=== PATIENT | female | born 1950 | race Caucasian/White ===

== ENCOUNTER → 2017-05-12 | Outpatient (CLI) | payer BC ==
--- NOTE | 2017-05-12 17:06 | XR ---
EXAMINATION TYPE: XR chest 2V DATE OF EXAM: 05/12/2017 COMPARISON: NONE INDICATION: Cough TECHNIQUE: Frontal and lateral views of the chest are obtained. FINDINGS: The heart size is normal. The pulmonary vasculature is normal. The lungs are clear. IMPRESSION: 1. No acute pulmonary process.
== END | disposition home or self-care (01) ==
LOC: RADXRMAIN 16:37
PROVIDERS: ATTEND Family Medicine
DX: J45.909 Unspecified asthma, uncomplicated (principal); Z00.00 Encounter for general adult medical examination without abnormal findings
CPT/HCPCS: 71020

== ENCOUNTER → 2017-06-10 | Outpatient (CLI) | payer MEDICARE, BC ==
--- NOTE | 2017-06-11 11:35 | BD ---
EXAMINATION TYPE: MG DEXA axial skeleton. DATE OF EXAM: 06/10/2017 COMPARISON: NONE CLINICAL HISTORY: Postmenopausal female. Screening. Height: 5 FT 2 1/2 IN Weight: 193 FRAX RISK QUESTIONS: Alcohol (3 or more units per day): NO Family History (Parent hip fracture): NO Glucocorticoids (More than 3mos): NO (Ex: prednisone, prednisolone, methylprednisolone, dexamethasone, and hydrocortisone). History of Fracture in Adulthood: NO Secondary Osteoporosis: 1. Type 1 Diabetes: NO 2. Hyperthyroidism: NO 3. Menopause before 45: NO 4. Malnutrition: NO 5. Chronic liver disease: HEP C 1985 FROM BLOOD TRANSFUSION Rheumatoid Arthritis: NO Current Tobacco Use: NO RISK FACTORS HISTORY OF: Surgery to Spine/Hip(right/left)/Wrist (right/left): RT HIP REPLACEMENT When: 2014 Family History of Osteoporosis: YES Active: YES Postmenopausal woman: PART HYST AGE 39 MEDICATIONS: Thyroid Medications:YES Which medication: NATURE-THYROID How Lon YEARS Additional Medications: ZYRTEC,VALTREX,NATURE-THYROID,XANAX, BACLOFEN Additional History: [place]OP[place]IA EXAM MEASUREMENTS: Bone mineral densitometry was performed using the [employer] System. Bone mineral density as measured about the Lumbar spine is: ----- L1-L4(G/cm2): 1.061 T Score Values are as follows: ----- L2: -0.9 ----- L3: -1.2 ----- L4: -1.2 ----- L1-L4: -1.0 Bone mineral density has: Increased 3.2 % since study of: 2008 Bone mineral density about the L hip (g/cm2): 0.756 T Score values are as follows: -----L Neck: -2.0 -----L Total: -1.1 Bone mineral density has: Decreased -1.5 % since study of: 2008 IMPRESSION: Osteopenia (T Score between -2.5 and -1) as noted by T score values There is slightly increased risk of fracture and the patient may be considered for treatment. Re-Screen 2-5 years. NOTE: T-SCORE=SD OF THE YOUNG ADULT MEAN.
--- NOTE | 2017-06-11 13:35 | MM ---
Reason for exam: screening (asymptomatic). Last mammogram was performed 7 years and 4 months ago. History: Patient is postmenopausal. Physical Findings: A clinical breast exam by your physician is recommended on an annual basis and results should be correlated with mammographic findings. MG 3D Screening Mammo W/Cad Bilateral CC and MLO view(s) were taken. Prior study comparison: February 11, 2010, bilateral digital screening mammogram. January 19, 2009, bilateral digital screening mammogram. There are scattered fibroglandular densities. Central nodular asymmetry in the right MLO view just above the retroareolar plane is stable from 2009. ASSESSMENT: Negative, BI-RAD 1 RECOMMENDATION: Routine screening mammogram of both breasts in 1 year.
== END | disposition home or self-care (01) ==
LOC: RADMAMWWP 15:28
PROVIDERS: ATTEND Family Medicine
DX: Z12.31 Encounter for screening mammogram for malignant neoplasm of breast (principal); M85.88 Other specified disorders of bone density and structure, other site
CPT/HCPCS: 77080; 77063; G0202

== ENCOUNTER → 2017-12-22 | Outpatient (CLI) | payer MEDICARE, BC ==
--- NOTE | 2017-12-22 14:01 | XR ---
EXAMINATION TYPE: XR foot complete LT DATE OF EXAM: 12/22/2017 COMPARISON: NONE HISTORY: Foot pain TECHNIQUE: Three-view left foot FINDINGS: No acute fractures are evident. There is loss of the first metatarsophalangeal joint space. Plantar calcaneal heel spur is present. IMPRESSION: 1. Degenerative joint changes first metatarsophalangeal joint space. 2. Plantar calcaneal heel spur. 3. No acute osseous abnormality. 4. Follow-up exams can be performed 7-10 days from acute trauma for continued pain.
== END | disposition home or self-care (01) ==
LOC: RADXRMAIN 13:26
PROVIDERS: ATTEND Family Medicine
DX: M77.32 Calcaneal spur, left foot (principal)

== ENCOUNTER 2018-01-04 10:33 | Day surgery (SDC) | payer MEDICARE, BC ==
[2017-12-31 16:08] VITALS: BMI 33.1
[~2018-01-04 10:33] MED LIST: LIDOCAINE 1% 20 ML VIAL (10MG/ML) FOR IV START INTRADERMA PRN
[2018-01-04] MEDS: LACTATED RINGERS 1,000 ML IV SCH ×2 (12:26→13:00)
[2018-01-04 12:32] VITALS: TEMP 98
[2018-01-04] MEDS ORDERED: PROPOFOL 10 MG/ML 20 ML VIAL IV ONE (13:02)
[2018-01-04] MEDS ORDERED: LIDOCAINE 1% INJ 10MG/ML (20 ML MDV) ONE (13:02)
--- NOTE | 2018-01-04 13:36 | P.PCN ---
Date of Procedure: 01/04/18 Procedure(s) Performed: Procedure: Total colonoscopy. Preoperative diagnosis: Screening for neoplasia. Postoperative diagnosis: Sigmoid diverticulosis with no evidence of acute diverticulitis, strictures, polyps or cancer. Preparation HalfLytely prep. Sedation was provided by anesthesia. Brief clinical history: The patient is a 67-year-old female who is scheduled for this evaluation for screening for neoplasia. She had 2 prior exams the last was around 5 years ago. There is family history of colon cancer in her maternal grandfather. The patient has no abdominal complaints, at this time, bleeding or anemia. Procedure: With the patient on her left lateral decubitus position and after informed consent and adequate sedation, the perianal area was inspected and it did not show any fissures or fistulas. Were no masses felt on digital rectal examination. The Olympus CFQ 160L video colonoscope was then inserted in the rectum in the usual fashion and advanced to the cecum. There were a few diverticular orifices seen scattered in the sigmoid but I saw no evidence of acute diverticulitis or strictures. The mucosa appeared healthy. No polyps or tumors were seen. I retroflexed the endoscope in the rectum before the endoscope was withdrawn. The patient tolerated the procedure well. Plan: The patient was reassured. Discussed dietary measures. She will follow- up with you as planned and I recommended repeat exam in around 10 years.
[2018-01-04 13:52] VITALS: BP 135/84; PULSE 76; RESP 18
== END 2018-01-04 14:24 | disposition home or self-care (01) ==
LOC: ORWHC2ENDO 10:33
DX: Z12.11 Encounter for screening for malignant neoplasm of colon (principal); K57.30 Diverticulosis of large intestine without perforation or abscess without bleeding; E07.9 Disorder of thyroid, unspecified; K58.9 Irritable bowel syndrome, unspecified; Z88.8 Allergy status to other drugs, medicaments and biological substances; Z88.1 Allergy status to other antibiotic agents; Z91.048 Other nonmedicinal substance allergy status; Z96.641 Presence of right artificial hip joint; Z90.710 Acquired absence of both cervix and uterus; Z79.899 Other long term (current) drug therapy; Z80.0 Family history of malignant neoplasm of digestive organs
CPT/HCPCS: J2001; J2704; G0105; 45378

== ENCOUNTER 2018-09-29 16:19 | Emergency (ER) | payer MEDICARE, BC ==
[2018-09-29 17:01] VITALS: RESP 18
[2018-09-29] MEDS ORDERED: KETOROLAC 60 MG/2 ML VIAL IM STA (18:38)
--- NOTE | 2018-09-29 19:59 | XR ---
EXAMINATION TYPE: XR knee complete LT DATE OF EXAM: 09/29/2018 COMPARISON: NONE HISTORY: Knee pain TECHNIQUE: 3 views FINDINGS: There is hypertrophic spurring of the medial femoral and tibial condyles. There is spurring of the patella. I see no fracture. There is knee joint effusion. IMPRESSION: Knee joint effusion. Mild osteoarthritis. No fracture seen.
--- NOTE | 2018-09-29 20:06 | ED ---
Lower Extremity Injury HPI - General Chief Complaint: Extremity Injury, Lower Stated Complaint: Fall-Knee Injury Source: patient Mode of arrival: wheelchair Limitations: no limitations - History of Present Illness Initial Comments: 68-year-old female with no significant past medical history presenting today for left knee pain. Patient states just prior to arrival she was walking in her backyard when she slipped on ice she felt as though she twisted her left knee. Patient denies dislocation. Patient states she had significant pain and was unable to fully weight-bear and ambulate following injury. Patient denies numbness, tingling, loss sensation, color, pallor or numbness of extremity. Patient denies fall, head injury, injury to any other extremity. Upon arrival patient appears well, no signs of acute distress. Patient missed to pain left knee. Patient refuses to fully range secondary to pain. Remainder ROS negative , patient denies any recent fever, chills, shortness of breath, chest pain, back pain, abdominal pain, nausea or vomiting, numbness or tingling, dysuria or hematuria, constipation or diarrhea, headaches or visual changes, or any other complaints. Blood pressure elevation noted upon arrival. - Related Data Home Medications Medication Instructions Recorded Confirmed Cetirizine HCl [Zyrtec] 10 mg PO DAILY 03/13/14 09/29/18 valACYclovir HCL [Valtrex] 500 mg PO DAILY 03/13/14 09/29/18 ALPRAZolam [Xanax] 0.125 mg PO TID PRN 05/10/15 09/29/18 Calcium Tab 1 tab PO DAILY 12/31/17 09/29/18 Cholecalciferol [Vitamin D3] 5,000 unit PO DAILY 12/31/17 09/29/18 Digestive Enzyme 1 tab PO DAILY 12/31/17 09/29/18 Fcidal 1 tab PO DAILY 12/31/17 09/29/18 Fluticasone Nasal [place] [Flonase 1 spray EA NOSTRIL DAILY PRN 12/31/17 09/29/18 Nasal [place]] Garlic 1 each PO MOWEFR 12/31/17 09/29/18 Pregnenolone 1 tab PO DAILY 12/31/17 09/29/18 Proomega 1 tab PO DAILY 12/31/17 09/29/18 Rlipoic Acid 1 tab PO DAILY 12/31/17 09/29/18 Silymarin Forte 1 tab PO DAILY 12/31/17 09/29/18 Thyroid,Pork [Etlan Thyroid] 90 mg PO DAILY 12/31/17 09/29/18 Ubidecarenone [Co Q-10] 100 mg PO DAILY 12/31/17 09/29/18 Coryza Forte 1 tab PO DAILY 09/29/18 09/29/18 T3 2.5 Mcg (Thyroid Med) 1 tab PO Q48H 09/29/18 09/29/18 Allergies Allergy/AdvReac Type Severity Reaction Status Date / Time gluten Allergy Unknown Verified 09/29/18 19:39 Milk Containing Products Allergy Unknown Verified 09/29/18 19:39 [Dairy] morphine Allergy Itching Verified 09/29/18 19:39 [From Duramorph (PF)] niacin Allergy passed out Verified 09/29/18 19:39 prednisone Allergy Rash/Hives, Verified 09/29/18 19:39 flushed skin soy Allergy Unknown Verified 09/29/18 19:39 adhesive AdvReac blisters,we Verified 09/29/18 19:39 lts Froysik-Lgg-Efh Reductase AdvReac muscle Verified 09/29/18 19:39 Inhibitor cramps egg white Allergy Unknown Uncoded 01/04/18 12:08 Review of Systems ROS Statement: Those systems with pertinent positive or pertinent negative responses have been documented in the HPI. ROS Other: All systems not noted in ROS Statement are negative. Past Medical History Past Medical History: Fibromyalgia, Liver Disease, Thyroid Disorder Additional Past Medical History / Comment(s): leg cramps, IBS, Hepatitis C from platelet transfusion, heel spurs and arthritis left foot, autoimmune alopecia versalis, hx kidney stones History of Any Multi-Drug Resistant Organisms: None Reported Past Surgical History: Bladder Surgery, Section, Hysterectomy, Joint Replacement, Orthopedic Surgery Additional Past Surgical History / Comment(s): Total R hip arthroplasty anterior approach. LITHOTRIPSY, MAXIMILIAN SHOULDER ROTATOR CUFF, MAXIMILIAN CARPAL TUNNEL, BLADDER SUSPENSION, MAXIMILIAN KNEE ARTHROSCOPY, LEFT LEG VEIN STRIPPED, LEFT LEG SAPHENOUS VEIN LIGATION Past Anesthesia/Blood Transfusion Reactions: Blood Transfusion Reaction, Postoperative Nausea & Vomiting (PONV) Additional Past Anesthesia/Blood Transfusion Reaction / Comment(s): "VERY SLOW TO WAKE UP", heptatis c from platelet transfuion. itcying with duramorph Past Psychological History: No Psychological Hx Reported Smoking Status: Never smoker Past Alcohol Use History: None Reported Past Drug Use History: None Reported - Past Family History Mother Family Medical History: Cancer Additional Family Medical History / Comment(s): LUNG Father Family Medical History: Cancer Additional Family Medical History / Comment(s): KIDNEY Sister(s) Family Medical History: Cancer Additional Family Medical History / Comment(s): STOMACH General Exam - General Exam Comments Initial Comments: General: The patient is awake and alert, in no distress, and does not appear acutely ill. Eye: Pupils are equal, round and reactive to light, extra-ocular movements are intact. No nystagmus. There is normal conjunctiva bilaterally. No signs of icterus. Cardiovascular: There is a regular rate and rhythm. No murmur, rub or gallop is appreciated. Respiratory: Lungs are clear to auscultation, respirations are non-labored, breath sounds are equal. No wheezes, stridor, rales, or rhonchi. Musculoskeletal: Upon inspection of the left knee there is soft tissue swelling. No abrasion or obvious deformity. Patient is able to extend at the left knee, quadriceps tendon appears intact. Patient refuses to fully range at the left knee secondary to pain. Unable to strength past left knee. Strength 5 /5 the left lower extremity distal and proximal to injury as well as the right lower extremity. Sensation intact of the lower extremities equally bilaterally. DP pulses equal bilaterally 2+. Neurological: A&O x 3. CN II-XII intact, There are no obvious motor or sensory deficits. Coordination appears grossly intact. Speech is normal. Skin: Skin is warm and dry and no rashes or lesions are noted. Psychiatric: Cooperative, appropriate mood & affect, normal judgment. Limitations: no limitations Course Vital Signs 09/29/18 09/29/18 16:57 20:37 Temperature 99.7 F H 99.2 F Pulse Rate 88 90 Respiratory 18 18 Rate Blood Pressure 176/84 146/65 O2 Sat by Pulse 97 96 Oximetry Medical Decision Making - Medical Decision Making X-ray negative for acute fracture or dislocation. Patient placed in knee immobilizer. Patient given Toradol for pain management. Patient given with peak surgery follow-up. Patient scribbled plan and discharged. Patient has a status relation with Dr. Soto and would prefer to see him. She states she called him this morning and he stated he had available point is. Patient will be discharged with her conditions to use walker for ambulation in addition to knee immobilizer. Patient scribbled plan. Return partners discussed at length. Patient verbalized understanding. Patient discharged in stable condition appearing well. Case was discussed with Dr. Trejo Disposition Clinical Impression: Left knee pain, Left knee injury Disposition: HOME SELF-CARE Condition: Good Instructions: Knee Sprain (ED), R.I.C.E. Treatment (ED) Additional Instructions: Please use over the counter medication as discussed. Please follow-up with family doctor in the next 2 days, please follow-up with orthopedic surgery in the next 1-2 days. Please use a walker for ambulation. Please return to emergency room if the symptoms increase or worsen or for any other concerns. Is patient prescribed a controlled substance at d/c from ED?: No Referrals: Sharad Mixon DO [Primary Care Provider] - 1-2 days Riaz Velasquez MD [STAFF PHYSICIAN] - 1-2 days Time of Disposition: 20:06
[2018-09-29 20:39] VITALS: BP 146/65; PULSE 90; TEMP 99.2
== END 2018-09-29 20:37 | disposition home or self-care (01) ==
LOC: EC 16:19
DX: S89.92XA Unspecified injury of left lower leg, initial encounter (principal); E07.9 Disorder of thyroid, unspecified; Z86.19 Personal history of other infectious and parasitic diseases; Z79.899 Other long term (current) drug therapy; Z91.048 Other nonmedicinal substance allergy status; Z91.012 Allergy to eggs; Z91.011 Allergy to milk products; Z91.018 Allergy to other foods; Z88.5 Allergy status to narcotic agent; Z88.8 Allergy status to other drugs, medicaments and biological substances; Z96.641 Presence of right artificial hip joint; W00.0XXA Fall on same level due to ice and snow, initial encounter; Y93.01 Activity, walking, marching and hiking; Y92.007 Garden or yard of unspecified non-institutional (private) residence as the place of occurrence of the external cause
CPT/HCPCS: 73562; 99283; 96372; J1885

== ENCOUNTER → 2018-12-14 | Outpatient (CLI) | payer MEDICARE, BC ==
--- NOTE | 2018-12-15 11:53 | ECHOF ---
Referral Reason:I48.1 Atrial fibrillation MEASUREMENTS -------- HEIGHT: 157.5 cm WEIGHT: 78.0 kg BP: RVIDd: 3.1 cm (< 3.3) IVSd: 1.0 cm (0.6 - 1.1) LVIDd: 3.8 cm (3.9 - 5.3) LVPWd: 1.2 cm (0.6 - 1.1) IVSs: 1.4 cm LVIDs: 2.4 cm LVPWs: 1.4 cm LAESV Index (A-L): 23.03 ml/m Ao Diam: 3.0 cm (2.0 - 3.7) AV Cusp: 1.6 cm (1.5 - 2.6) LA Diam: 2.9 cm (2.7 - 3.8) MV E Sky: 0.74 m/s MV DecT: 274 ms MV A Sky: 0.96 m/s MV E/A Ratio: 0.76 RAP: 5.00 mmHg RVSP: 15.51 mmHg FINDINGS -------- Sinus rhythm. This was a technically adequate study. The left ventricular size is normal. There is borderline concentric left ventricular hypertrophy. Overall left ventricular systolic function is normal with, an EF between 55 - 60 %. The right ventricle is normal in size and function. Normal LA size by volume 22+/-6 ml/m2. The right atrium is normal in size. Aortic valve is trileaflet and is mildly thickened. There is no evidence of aortic regurgitation. There is no evidence of aortic stenosis. The mitral valve leaflets are mildly thickened. There is trace to mild mitral regurgitation. Trace tricuspid regurgitation present. Right ventricular systolic pressure is normal at < 35 mmHg. There is no evidence of pulmonary hypertension. Trace/mild (physiologic) pulmonic regurgitation. The aortic root size is normal. Normal inferior vena cava with normal inspiratory collapse consistent with estimated right atrial pre ssure of 5 mmHg. There is no pericardial effusion. CONCLUSIONS -------- 1. Sinus rhythm. 2. This was a technically adequate study. 3. The left ventricular size is normal. 4. There is borderline concentric left ventricular hypertrophy. 5. Overall left ventricular systolic function is normal with, an EF between 55 - 60 %. 6. The right ventricle is normal in size and function. 7. Normal LA size by volume 22+/-6 ml/m2. 8. Aortic valve is trileaflet and is mildly thickened. 9. The mitral valve leaflets are mildly thickened. 10. There is trace to mild mitral regurgitation. 11. Trace tricuspid regurgitation present. 12. Right ventricular systolic pressure is normal at < 35 mmHg. 13. There is no evidence of pulmonary hypertension. 14. Trace/mild (physiologic) pulmonic regurgitation. 15. The aortic root size is normal. 16. There is no pericardial effusion. FLOOR COVERING CONTRACTOR: Arik Tucker RDCS
--- NOTE | 2018-12-16 09:01 | EST ---
EXERCISE STRESS AGE: 68 SEX: F HT: 63 WT: 172 PROTOCOL: Rosalino STAGE: II DURATION OF EXERCISE: 5:00 HEART RATE REST: 94 BLOOD PRESSURE REST: 177/79 MAXIMUM HEART RATE ACHIEVED: 145 MAXIMUM BLOOD PRESSURE: 210/93 85% MPHR: 130 100% MPHR: 153 METS: 7.0 INDICATIONS: Atrial fibrillation. CLINICAL INFORMATION: Patient was exercised for a total period of 5 minutes. Peak heart rate of 145 was achieved. Maximum blood pressure of 210/93 mmHg was noted. Resting EKG shows normal sinus rhythm with normal MT interval and QRS duration and normal ST-T waves. No ST- segment depression suggestive of ischemia is noted. Patient did not complain of any chest pain during the test. Test was terminated because patient got short of breath. FINAL IMPRESSION: 1. This exercise test is not suggestive of ischemia. 2. Patient's exercise tolerance is average. 3. Patient did not complain of any anginal pain during the test. 4. Test was terminated because patient got short of breath. MMODL / IJN: [id number] /
== END ==
LOC: RADNMMAIN 10:38
PROVIDERS: ATTEND Family Medicine
DX: I48.91 Unspecified atrial fibrillation (principal)
CPT/HCPCS: 93017; 93270; 93271; 93306

== ENCOUNTER → 2018-12-21 | Outpatient (CLI) | payer MEDICARE, BC ==
--- NOTE | 2018-12-21 09:40 | CT ---
EXAMINATION TYPE: CT abdomen pelvis wo con DATE OF EXAM: 12/21/2018 COMPARISON: None HISTORY: 68-year-old female with calculus of ureter, renal colic, Right flank pain CT DLP: 742 mGycm. Automated exposure control for dose reduction was used. TECHNIQUE: Contiguous axial scanning of the abdomen and pelvis without IV contrast. Coronal and sagit refugio reconstructions performed. FINDINGS: Heart normal size without pericardial effusion. Some patchy probable atelectasis at the inferior ling angeles. Borderline ectasia of the lower descending thoracic aorta 2.6 cm. Tiny 3 mm pulmonary nodule posterior left base, axial image 8. 4 mm peripheral right basilar pulmonary nodule, axial image 6. 6 month follow-up CT chest recommended to reassess. Noncontrast appearance of the liver, adrenal glands, kidneys, spleen, and pancreas show no gross abno rmality. Layering gravel/tiny calculi in the nondistended gallbladder. No nephrolithiasis or hydronephrosis. No suspicious calculus seen along the course of either ureter. Small fatty umbilical hernia. No dilated small bowel, free fluid, or free air. Normal appendix. Scattered [id number] stool in mild sigmoid diverticulosis. No pericolic inflam matory change. Scattered nonenlarged borderline and mildly enlarged upper abdominal lymph nodes are demonstrated. Th randell measure up to 8 and 7 mm in the gastrohepatic ligament region, 9 mm left periaortic near the SMA takeoff, 1.4 cm portacaval, and 1.1 cm delbert hepatic. Borderline sized 5 mm right lower quadrant mesenteric lymph nodes. Metal hardware artifact from patient's right hip total arthroplasty limits visualization the pelvis. Bladder is partially distended. Pelvic phleboliths. Uterus appears surgically absent. No adnexal abno rmality seen. Suspect small bilateral ovaries. No abnormal fluid collection in pelvis or obvious pelv ic lymphadenopathy seen. Bones: Right hip total arthroplasty. Moderate to severe degenerative changes of the left hip. Facet a rthropathy lower lumbar spine. IMPRESSION: 1. No nephrolithiasis or hydronephrosis. No definite suspicious calcification seen along the course of either ureter. 2. Borderline to mildly enlarged upper abdominal lymph nodes measuring up to 1.4 and 1.1 cm. Finding s may be reactive/post inflammatory. Three-month follow-up contrast enhanced CT recommended to ensure stability/resolution. 3. A couple basilar pulmonary nodules measuring up to 4 mm. At the patient's 3 month follow-up, a co ntrast-enhanced CT of the chest can be added to survey the entire lungs and reassess these nodules. 4. Cholelithiasis and small fatty umbilical hernia. Mild sigmoid diverticulosis.
== END | disposition home or self-care (01) ==
LOC: RADCTMAIN 08:06
PROVIDERS: ATTEND Urology
DX: K80.20 Calculus of gallbladder without cholecystitis without obstruction (principal); K57.30 Diverticulosis of large intestine without perforation or abscess without bleeding; K42.9 Umbilical hernia without obstruction or gangrene; Z88.8 Allergy status to other drugs, medicaments and biological substances
CPT/HCPCS: 74176

== ENCOUNTER → 2019-04-18 | Outpatient (CLI) | payer MEDICARE, BC ==
--- NOTE | 2019-04-18 16:41 | US ---
Exam: LOWER EXTREMITY VENOUS INSUFFICIENCY DATE: 04/18/2019. TECHNIQUE: Color and spectral Doppler analysis of the bilateral lower extremity for assessment of DVT and venous insufficiency. FINDINGS: SIDE PERFORMED: Bilateral 1) Color flow is present and patency is documented in the following vessels. No DVT or SVT is noted . EIV Common Femoral Vein Deep Femoral Vein Femoral Vein Popliteal Vein Proximal Calf Veins Greater Saph Vein Upper Small Saph Vein 2) There is venous reflux noted at the following venous levels: Right: EIV, GSV, CFV, DFV. Left: EIV, CFV, DFV, IMPRESSION: 1. No evidence for DVT within the bilateral lower extremities imaged from the groin to the upper calv es. 2. Bilateral lower extremity venous reflux as outlined above.
== END | disposition home or self-care (01) ==
LOC: RADUSMAIN 15:50
PROVIDERS: ATTEND Internal Medicine Cardiovascular Disease
DX: I87.8 Other specified disorders of veins (principal)
CPT/HCPCS: 93970

== ENCOUNTER → 2019-11-01 | Outpatient (CLI) | payer MEDICARE ==
--- NOTE | 2019-11-01 11:10 | US ---
EXAMINATION TYPE: US thyroid st tissue head/neck DATE OF EXAM: 11/01/2019 COMPARISON: NONE CLINICAL HISTORY: E03 Hypothyroidism, Goiter. Goiter GLAND SIZE: Right Lobe: 2.1 x 0.6 x 0.8 cm Overall Parenchyma: heterogenous Left Lobe: 2.4 x 0.6 x 0.7 cm Overall Parenchyma: heterogeneous Isthmus Thickness: 0.2 cm NODULES RIGHT: # of nodules measured on right: 0 LEFT: # of nodules measured on left: 0 ISTHMUS: # of nodules measured in the isthmus: 0 Bilateral neck scanned, no evidence of lymphadenopathy. Limited visualization, thyroid small in size. IMPRESSION: Diminutive thyroid lobes with diffuse nonspecific heterogeneity.
== END | disposition home or self-care (01) ==
LOC: RADUSWWP 10:10
PROVIDERS: ATTEND Family Medicine
DX: E07.89 Other specified disorders of thyroid (principal); E03.9 Hypothyroidism, unspecified
CPT/HCPCS: 76536

== ENCOUNTER 2020-04-11 11:43 | Emergency (ER) | payer MEDICARE ==
[2020-04-11] MEDS ORDERED: SODIUM CHLORIDE 0.9% 500 ML 500 ML IV STA (11:48)
[2020-04-11 11:54] VITALS: RESP 18
--- NOTE | 2020-04-11 12:07 | ED ---
General Adult HPI - General Chief complaint: Neuro Symptoms/Deficit Stated complaint: Fall,Possible Seizure Time Seen by Provider: 04/11/20 11:44 Source: patient, EMS, RN notes reviewed, old records reviewed Mode of arrival: EMS Limitations: no limitations - History of Present Illness Initial comments: 70-year-old female presented for evaluation of fall with head trauma. Patient was walking into a store, she tripped on some concrete and fell striking the right side of her head. There was no immediate loss of consciousness. She also injured her right wrist with the fall. No anticoagulation. She complains of mild headache and wrist pain. However after the fall she was sitting and had an episode where she lost consciousness and he came quite stiff. There was no reported tonic-clonic jerking according to EMS. This episode lasted approximat emmanuel 1 minute. She has no previous history of seizure disorder. No chest pain or palpitations. No focal numbness or weakness. - Related Data Home Medications Medication Instructions Recorded Confirmed Cetirizine HCl [Zyrtec] 10 mg PO DAILY 03/13/14 04/11/20 valACYclovir HCL [Valtrex] 500 mg PO DAILY 03/13/14 04/11/20 ALPRAZolam [Xanax] 0.5 mg PO BID PRN 05/10/15 04/11/20 Calcium Tab 1 tab PO DAILY 12/31/17 04/11/20 Cholecalciferol [Vitamin D3] 5,000 unit PO DAILY 12/31/17 04/11/20 Digestive Enzyme 1 tab PO DAILY 12/31/17 04/11/20 Fcidal 1 tab PO DAILY 12/31/17 04/11/20 Fluticasone Nasal [place] [Flonase 1 spray EA NOSTRIL DAILY PRN 12/31/17 04/11/20 Nasal [place]] Garlic 1 each PO MOWEFR 12/31/17 04/11/20 Pregnenolone 1 tab PO DAILY 12/31/17 04/11/20 Proomega 1 tab PO DAILY 12/31/17 04/11/20 Silymarin Forte 1 tab PO DAILY 12/31/17 04/11/20 Ubidecarenone [Co Q-10] 100 mg PO DAILY 12/31/17 04/11/20 Coryza Forte 1 tab PO DAILY 01/09/19 07/22/20 Levothyroxine Sodium [Synthroid] 112 mcg PO DAILY 04/11/20 04/11/20 Allergies Allergy/AdvReac Type Severity Reaction Status Date / Time gluten Allergy Unknown Verified 04/11/20 13:29 Milk Containing Products Allergy Unknown Verified 04/11/20 13:29 [Dairy] morphine Allergy Itching Verified 04/11/20 13:29 [From Duramorph (PF)] niacin Allergy passed out Verified 04/11/20 13:29 prednisone Allergy Rash/Hives, Verified 04/11/20 13:29 flushed skin soy Allergy Unknown Verified 04/11/20 13:29 adhesive AdvReac blisters,we Verified 04/11/20 13:29 lts Bjqccco-Ytn-Icy Reductase AdvReac muscle Verified 04/11/20 13:29 Inhibitor cramps egg white Allergy Unknown Uncoded 04/11/20 11:46 Review of Systems ROS Statement: Those systems with pertinent positive or pertinent negative responses have been documented in the HPI. ROS Other: All systems not noted in ROS Statement are negative. Past Medical History Past Medical History: Atrial Fibrillation, Fibromyalgia, Liver Disease, Sleep Apnea/CPAP/BIPAP, Thyroid Disorder Additional Past Medical History / Comment(s): leg cramps, IBS, Hepatitis C from platelet transfusion, heel spurs and arthritis left foot, autoimmune alopecia versalis, hx kidney stones History of Any Multi-Drug Resistant Organisms: None Reported Past Surgical History: Bladder Surgery, Section, Hysterectomy, Joint Replacement, Orthopedic Surgery Additional Past Surgical History / Comment(s): Total R hip arthroplasty anterior approach. LITHOTRIPSY, MAXIMILIAN SHOULDER ROTATOR CUFF, MAXIMILIAN CARPAL TUNNEL, BLADDER SUSPENSION, MAXIMILIAN KNEE ARTHROSCOPY, LEFT LEG VEIN STRIPPED, LEFT LEG SAPHENOUS VEIN LIGATION Past Anesthesia/Blood Transfusion Reactions: Blood Transfusion Reaction, Postoperative Nausea & Vomiting (PONV) Additional Past Anesthesia/Blood Transfusion Reaction / Comment(s): "VERY SLOW TO WAKE UP", heptatis c from platelet transfuion. itcying with duramorph Past Psychological History: No Psychological Hx Reported Smoking Status: Never smoker Past Alcohol Use History: None Reported Past Drug Use History: None Reported - Past Family History Mother Family Medical History: Cancer Additional Family Medical History / Comment(s): LUNG Father Family Medical History: Cancer Additional Family Medical History / Comment(s): KIDNEY Sister(s) Family Medical History: Cancer Additional Family Medical History / Comment(s): STOMACH General Exam Limitations: no limitations General appearance: alert, in no apparent distress Head exam: Present: atraumatic, normocephalic Eye exam: Present: periorbital swelling, periorbital tenderness ENT exam: Present: normal exam Neck exam: Present: normal inspection. Absent: tenderness, meningismus Respiratory exam: Present: normal lung sounds bilaterally. Absent: respiratory distress, wheezes Cardiovascular Exam: Present: regular rate, normal rhythm GI/Abdominal exam: Present: soft. Absent: distended, tenderness, guarding Extremities exam: Present: other (Right wrist pain, and swelling, normal sensation, distal pulses intact.) Neurological exam: Present: alert, oriented X3, CN II-XII intact. Absent: motor sensory deficit Psychiatric exam: Present: normal affect, normal mood Skin exam: Present: warm, dry, intact. Absent: cyanosis, diaphoretic Course Vital Signs 04/11/20 11:47 Temperature 98 F Pulse Rate 65 Respiratory 18 Rate Blood Pressure 116/75 O2 Sat by Pulse 99 Oximetry EKG Findings - EKG Comments: EKG Findings:: EKG: Normal sinus rhythm, right ventricular conduction delay, no ST segment elevation, rate of 63, [place] interval 178, QRS duration 102, QTC 454. Procedures - Orthopedic Splinting/Casting Injury #1 Side: right Upper Extremity Injury Location: wrist Upper Extremity Immobilizer: volar splint, wrist splint Medical Decision Making - Medical Decision Making 70-year-old female with mechanical fall, head injury, and likely syncopal episode. Patient had tripped and fallen striking the right side of her head. 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 Additionally there is lung nodule seen on both chest x-ray and CT of the neck, patient will follow-up with lung nodules with her primary care as well. She has no further acute fracture dislocation cervical spine. She has a normal CBC, normal CMP, negative troponin, nonischemic EKG. X-ray of the wrist is showing a distal radius fracture which is nondisplaced. She's placed in a splint in the emergency department. She is neurovascularly intact both before and after splinting. She will follow with orthopedics regarding wrist fracture. 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 - Lab Data Result diagrams: 04/11/20 11:58 04/11/20 11:58 Lab Results 04/11/20 04/11/20 04/11/20 Range/Units 11:58 11:58 11:58 WBC 6.3 (3.8-10.6) k/uL RBC 4.26 (3.80-5.40) m/uL Hgb 12.8 (11.4-16.0) gm/dL Hct 39.9 (34.0-46.0) % MCV 93.7 (80.0-100.0) fL MCH 30.1 (25.0-35.0) pg MCHC 32.1 (31.0-37.0) g/dL RDW 13.2 (11.5-15.5) % Plt Count 225 (150-450) k/uL Neutrophils % 47 % Lymphocytes % 38 % Monocytes % 7 % Eosinophils % 5 % Basophils % 1 % Neutrophils # 2.9 (1.3-7.7) k/uL Lymphocytes # 2.4 (1.0-4.8) k/uL Monocytes # 0.4 (0-1.0) k/uL Eosinophils # 0.3 (0-0.7) k/uL Basophils # 0.0 (0-0.2) k/uL PT 10.3 (9.0-12.0) sec INR 1.0 (<1.2) APTT 21.7 L (22.0-30.0) sec Sodium 134 L (137-145) mmol/L Potassium 3.9 (3.5-5.1) mmol/L Chloride 104 (98-107) mmol/L Carbon Dioxide 19 L (22-30) mmol/L Anion Gap 11 mmol/L BUN 15 (7-17) mg/dL Creatinine 0.87 (0.52-1.04) mg/dL Est GFR (CKD-EPI)AfAm 79 (>60 ml/min/1.73 sqM) Est GFR (CKD-EPI)NonAf 68 (>60 ml/min/1.73 sqM) Glucose 138 H (74-99) mg/dL Calcium 9.4 (8.4-10.2) mg/dL Magnesium 2.0 (1.6-2.3) mg/dL Total Bilirubin 0.8 (0.2-1.3) mg/dL AST 21 (14-36) U/L ALT 14 (4-34) U/L Alkaline Phosphatase 169 H (38-126) U/L Troponin I (0.000-0.034) ng/mL Total Protein 6.5 (6.3-8.2) g/dL Albumin 4.0 (3.5-5.0) g/dL TSH (0.465-4.680) mIU/L Free T4 (0.78-2.19) ng/dL Free T3 pg/mL (2.8-5.3) pg/ml 04/11/20 04/11/20 Range/Units 11:58 12:03 WBC (3.8-10.6) k/uL RBC (3.80-5.40) m/uL Hgb (11.4-16.0) gm/dL Hct (34.0-46.0) % MCV (80.0-100.0) fL MCH (25.0-35.0) pg MCHC (31.0-37.0) g/dL RDW (11.5-15.5) % Plt Count (150-450) k/uL Neutrophils % % Lymphocytes % % Monocytes % % Eosinophils % % Basophils % % Neutrophils # (1.3-7.7) k/uL Lymphocytes # (1.0-4.8) k/uL Monocytes # (0-1.0) k/uL Eosinophils # (0-0.7) k/uL Basophils # (0-0.2) k/uL PT (9.0-12.0) sec INR (<1.2) APTT (22.0-30.0) sec Sodium (137-145) mmol/L Potassium (3.5-5.1) mmol/L Chloride (98-107) mmol/L Carbon Dioxide (22-30) mmol/L Anion Gap mmol/L BUN (7-17) mg/dL Creatinine (0.52-1.04) mg/dL Est GFR (CKD-EPI)AfAm (>60 ml/min/1.73 sqM) Est GFR (CKD-EPI)NonAf (>60 ml/min/1.73 sqM) Glucose (74-99) mg/dL Calcium (8.4-10.2) mg/dL Magnesium (1.6-2.3) mg/dL Total Bilirubin (0.2-1.3) mg/dL AST (14-36) U/L ALT (4-34) U/L Alkaline Phosphatase (38-126) U/L Troponin I <0.012 (0.000-0.034) ng/mL Total Protein (6.3-8.2) g/dL Albumin (3.5-5.0) g/dL TSH 0.031 L (0.465-4.680) mIU/L Free T4 2.33 H (0.78-2.19) ng/dL Free T3 pg/mL 4.2 (2.8-5.3) pg/ml Disposition Clinical Impression: Syncope, Concussion, Chiari malformation, Distal radius fracture, right, Lung nodule Disposition: HOME SELF-CARE Condition: Good Instructions (If sedation given, give patient instructions): Concussion (ED), Chiari Malformation (DC), Pulmonary Nodules (ED), Wrist Fracture in Adults (ED), Syncope (ED) Is patient prescribed a controlled substance at d/c from ED?: No Referrals: Sharad Mixon DO [Primary Care Provider] - 1-2 days James Lawson MD [REFERRING] - 1-2 days Riaz Velasquez MD [STAFF PHYSICIAN] - 1-2 days Time of Disposition: 14:31
[2020-04-11 12:33] LABS: Basophils % (A) 1 %; Eosinophils # (A) 0.3 k/uL (0-0.7); Eosinophils % (A) 5 %; HCT 39.9 % (34.0-46.0); HGB 12.8 gm/dL (11.4-16.0); Lymphocytes # (A) 2.4 k/uL (1.0-4.8); Lymphocytes % (A) 38 %; MCH 30.1 pg (25.0-35.0); MCHC 32.1 g/dL (31.0-37.0); MCV 93.7 fL (80.0-100.0); Mean Platelet Volume 7.7; Monocytes # (A) 0.4 k/uL (0-1.0); Monocytes % (A) 7 %; Neutrophils # (A) 2.9 k/uL (1.3-7.7); Neutrophils % (A) 47 %; Platelet Count 225 k/uL (150-450); RBC 4.26 m/uL (3.80-5.40); RDW 13.2 % (11.5-15.5); WBC 6.3 k/uL (3.8-10.6)
[2020-04-11 12:40] LABS: Calcium 9.4 mg/dL (8.4-10.2); Potassium 3.9 mmol/L (3.5-5.1); Total Bilirubin 0.8 mg/dL (0.2-1.3); Total Protein 6.5 g/dL (6.3-8.2)
--- NOTE | 2020-04-11 12:43 | CT ---
EXAMINATION TYPE: CT brain rebekah wo con DATE OF EXAM: 04/11/2020 COMPARISON: 11/12/2009 HISTORY: Fall today with head and neck pain. CT DLP: 1357.3 mGycm Automated exposure control for dose reduction was used. TECHNIQUE: CT scan of the head and cervical spine are performed without contrast. FINDINGS: Brain: The cerebellar tonsils are displaced below the foramen magnum compatible with a Chiari malformation. Correlate with MRI. Mild to moderate generalized degenerative change of the greater frontal lobe comp onent. No acute hemorrhage or mass effect. Calvarium intact. Changes of chronic sinusitis noted. Cervical spine: Assessment of the spinal column is nondiagnostic due to artifact and resolution. There is a degenerative disc disease C5-C6 and C6-C7 with posterior spondylosis. Foraminal encroachme nt suspected. Could not exclude canal stenosis. Slight anterolisthesis of C4 on C5. Odontoid intact. Prevertebral soft tissue structures are within normal limits. Multilevel facet arthropathy. Subpleura l 4 mm nodule right upper lobe posteriorly. There is additional calcified granuloma in the right uppe r lobe. Subsegmental changes likely related atelectasis and motion artifact. IMPRESSION: 1. There is no acute fracture or dislocation evident in the cervical spine. Multilevel degenerative d isc disease and facet arthropathy recommend follow-up MRI 2. No acute intracranial hemorrhage, mass effect, or midline shift is seen. However, there is tonsill ar herniation and findings compatible with Chiari malformation correlate clinically. Follow-up MRI co uld be obtained. #3 there is a 4 mm subpleural nodule right upper lobe posteriorly too small to ronak cterize could be followed on a short-term basis with standard CT chest. Additional calcified granulom a in the right upper lobe.
--- NOTE | 2020-04-11 12:44 | XR ---
EXAMINATION TYPE: XR chest 2V DATE OF EXAM: 04/11/2020 COMPARISON: 05/12/2017 TECHNIQUE: PA and lateral views submitted. HISTORY: Syncope FINDINGS: The lungs are clear and there is no pneumothorax, pleural effusion, or focal pneumonia. Hyperinflat ion suggests COPD. Biapical pleural thickening. No overt failure. Subsegmental right perihilar change s are seen. Degenerative change spine. IMPRESSION: 1. COPD. Right perihilar asymmetric density may be related to overlapping structures or atelectasis r ather than pneumonia or early neoplasm correlate clinically. Short-term chest x-ray could be obtained as clinically warranted..
--- NOTE | 2020-04-11 12:48 | XR ---
EXAMINATION TYPE: XR wrist complete RT DATE OF EXAM: 04/11/2020 COMPARISON: NONE HISTORY: Pain TECHNIQUE: Four views submitted. FINDINGS: Mild diffuse osteopenia. There is a deformity involving the base of the fifth metacarpal. Mild arthro silvana of the radiocarpal joint. On the oblique view there is a lucency through the intra-articular po rtion of the distal radius. IMPRESSION: 1. Findings are suspicious for hairline intra-articular fracture of the distal radius. 2. There is deformity involving the base of the fifth metacarpal. This is of indeterminate age. Corre late with point tenderness to exclude acute fracture.
[2020-04-11 12:51] LABS: Prothrombin Time 10.3 sec (9.0-12.0)
[2020-04-11 13:20] LABS: Partial Thromboplastin Time 21.7 sec (22.0-30.0)
[2020-04-11 13:34] LABS: T4, Free (Free Thyroxine) 2.33 ng/dL (0.78-2.19)
[2020-04-11 14:54] VITALS: BP 123/68; PULSE 61; TEMP 98.7
== END 2020-04-11 14:50 | disposition home or self-care (01) ==
LOC: EC 11:43
DX: S06.0X9A Concussion with loss of consciousness of unspecified duration, initial encounter (principal); S52.501A Unspecified fracture of the lower end of right radius, initial encounter for closed fracture; G93.5 Compression of brain; R55 Syncope and collapse; R91.1 Solitary pulmonary nodule; E07.9 Disorder of thyroid, unspecified; M13.872 Other specified arthritis, left ankle and foot; G47.30 Sleep apnea, unspecified; Z99.89 Dependence on other enabling machines and devices; Z96.641 Presence of right artificial hip joint; Z79.890 Hormone replacement therapy; Z79.899 Other long term (current) drug therapy; Z91.018 Allergy to other foods; Z91.011 Allergy to milk products; Z88.5 Allergy status to narcotic agent; Z88.8 Allergy status to other drugs, medicaments and biological substances; Z91.048 Other nonmedicinal substance allergy status; Z91.012 Allergy to eggs; Z53.9 Procedure and treatment not carried out, unspecified reason; W01.10XA Fall on same level from slipping, tripping and stumbling with subsequent striking against unspecified object, initial encounter; Y92.89 Other specified places as the place of occurrence of the external cause; Y93.01 Activity, walking, marching and hiking
CPT/HCPCS: 29125; 36415; 70450; 71046; 72125; 80053; 83735; 84436; 84439; 84443; 84480; 84481; 84484; 85025; 85610; 85730; 93005; 99285

== ENCOUNTER → 2020-04-27 | Outpatient (CLI) | payer MEDICARE ==
--- NOTE | 2020-04-29 23:03 | EEG ---
ELECTROENCEPHALOGRAM REPORT PROCEDURE DATE: 04/27/2020 ELECTROENCEPHALOGRAM (EEG) REPORT: TECHNIQUE: A routine 18 channel EEG was performed with video using the 10/20 international electrode placement system. HISTORY: Status post fall, possible syncopal episode. Other medical history includes hypothyroidism. CURRENT MEDICATIONS: Synthroid, Valtrex, Xanax, Zyrtec. STUDY DURATION: 25 minutes. FINDINGS: BACKGROUND: The background activity consists of 9-10 hertz rhythmic waveforms symmetric through both posterior quadrants. ACTIVATION: Hyperventilation: Not performed. Photic stimulation: Symmetric driving seen. Sleep: Brief stage 1 sleep noted. ABNORMALITIES: None. Please note that 1 channel of this EEG was dedicated to EKG. It demonstrated a sinus rhythm. IMPRESSION: Normal EEG. No epileptiform activity was present. No seizures were recorded. MMODL / IJN: [id number] /
== END | disposition home or self-care (01) ==
LOC: NEUROMAIN 07:58
PROVIDERS: ATTEND Family Medicine
DX: R91.1 Solitary pulmonary nodule (principal); Q07.00 Arnold-Chiari syndrome without spina bifida or hydrocephalus
CPT/HCPCS: 95816

== ENCOUNTER → 2020-05-17 | Outpatient (CLI) | payer MEDICARE ==
--- NOTE | 2020-05-17 15:19 | MR ---
MRI CERVICAL SPINE: CLINICAL HISTORY: Neck pain, Chiari malformation TECHNIQUE: Multiplanar, multisequence imaging of the brain and cervical spine is performed without in travenous contrast. COMPARISON: CT brain and C-spine 04/11/2020 FINDINGS: Diffusion weighted images demonstrate no evidence of a recent infarct or other diffusion abnormality. There is no extra-axial fluid collection or significant white matter signal abnormality. The ventr icular system and cisternal spaces are normal in size and appearance. The brain volume is age approp riate. Minimal periventricular and subcortical white matter T2 FLAIR hyperintense foci. There is Chiari I malformation with cerebellar tonsillar caudal displacement of up to 7 mm on the lef t. Midline structures demonstrate normal morphology. The craniocervical junction appears within nor mal limits. The visualized sinuses are clear and the globes are intact. Sagittal images of the cervical spine show the craniocervical junction to appear within normal limits . The cervical and upper thoracic spinal cord is normal in course, caliber, and signal. There is no evidence of syrinx. Vertebral alignment is anatomic. The vertebral body heights are normal. There is disc space narrowing at C5-C6 and C6-C7 with osteophytosis. There is posterior disc bulging at C5- C6 with mild canal stenosis. There is mild posterior disc bulging at C6-C7 and C7-T1 with effacement of the ventral thecal sac and no significant canal stenosis. Multilevel facet arthropathy is seen wit h varying degrees of neural foramina narrowing, with severe bilateral neural foramina narrowing at C5 -C6 and C6-C7. And intravertebral disk heights are normal. The bone marrow signal intensity is withi n normal limits. There is likely a hemangioma of T1. IMPRESSION: 1. Chiari I malformation with up to 7 mm of cerebellar tonsillar caudal displacement. No evidence of hydrocephalus or of syrinx of the cervical or visualized thoracic cord. 2. Minimal scattered T2 FLAIR hyperintense foci in the brain likely represent sequela of microvascula r ischemic change. 3. Degenerative disc disease and facet arthropathy of the cervical spine, with mild canal stenosis at C5-C6, and severe neural foramina narrowing bilaterally at C5-C6 and C6-C7.
== END | disposition home or self-care (01) ==
LOC: RADMRIMAIN 08:47
PROVIDERS: ATTEND Family Medicine
DX: M48.02 Spinal stenosis, cervical region (principal); M50.322 Other cervical disc degeneration at C5-C6 level; M47.812 Spondylosis without myelopathy or radiculopathy, cervical region; G93.5 Compression of brain
CPT/HCPCS: 70551; 72141

== ENCOUNTER → 2022-12-25 | Outpatient (CLI) | payer MEDICARE ==
--- NOTE | 2022-12-25 10:38 | CA ---
Transthoracic Echo Report Name: Rosanne Hawthorne Age: 72 Gender: F : 1950 Exam Date: 12/25/2022 08:29 Exam Location: [place] [facility] Ht (in): 63 Wt (lb): 175 Ordering Physician: Sharad Mixon DO Attending/Referring Phys: Utility Bill Complaints Investigator Priscila Bowden RDCS Procedure CPT: Indications: R07.9 Cardiac Hx: Technical Quality: Fair Contrast 1: Total Dose (mL): Contrast 2: Total Dose (mL): MEASUREMENTS (Male / Female) Normal Values 2D ECHO LV Diastolic Diameter PLAX 3.8 cm 4.2 - 5.9 / 3.9 - 5.3 cm LV Systolic Diameter PLAX 2.7 cm IVS Diastolic Thickness 1.4 cm 0.6 - 1.0 / 0.6 - 0.9 cm LVPW Diastolic Thickness 0.9 cm 0.6 - 1.0 / 0.6 - 0.9 cm LV Relative Wall Thickness 0.6 RV Internal Dim ED PLAX 3.1 cm LA Volume 65.8 cm??? 18 - 58 / 22 - 52 cm??? M-MODE Aortic Root Diameter MM 2.0 cm LA Systolic Diameter MM 4.2 cm LA Ao Ratio MM 2.1 AV Cusp Separation MM 1.9 cm DOPPLER AV Peak Velocity 141.0 cm/s AV Peak Gradient 8.0 mmHg AV Mean Velocity 97.8 cm/s AV Mean Gradient 4.2 mmHg AV Velocity Time Integral 30.5 cm LVOT Peak Velocity 116.1 cm/s LVOT Peak Gradient 5.4 mmHg LVOT Velocity Time Integral 28.3 cm MV Area PHT 3.6 cm??? Mitral E Point Velocity 70.0 cm/s Mitral A Point Velocity 94.7 cm/s Mitral E to A Ratio 0.7 MV Deceleration Time 210.9 ms MV E' Velocity 6.6 cm/s Mitral E to MV E' Ratio 10.6 TR Peak Velocity 244.7 cm/s TR Peak Gradient 23.9 mmHg Right Ventricular Systolic Press 28.8 mmHg FINDINGS Left Ventricle Left ventricular cavity size normal. Moderately increased left ventricular wall thickness. Normal left ventricular systolic function with no obvious regional wall motion abnormalities. Left ventricular ejection fraction is estimated at 55-60 %. Right Ventricle Normal right ventricular size and function. Right ventricular systolic pressure within normal limits. Right Atrium Normal right atrial size. Left Atrium Moderately increased left atrial volume. Mildly increased left atrial area. Mitral Valve Structurally normal mitral valve. Mild mitral regurgitation. Aortic Valve Trileaflet aortic valve. No aortic valve stenosis or regurgitation. Tricuspid Valve Structurally normal tricuspid valve. Mild tricuspid regurgitation. Pulmonic Valve Structurally normal pulmonic valve. Trace pulmonic regurgitation. Pericardium No pericardial effusion. Aorta Normal size aortic root and proximal ascending aorta. CONCLUSIONS Normal LV size and systolic function. Mild concentric LVH. Mild mitral and tricuspid regurgitation no pericardial effusion. No pulmonary hypertension Previewed by: Dr. Kirk Montes MD (Electronically Signed) Final Date: 25 December 2022 10:37
--- NOTE | 2022-12-25 17:43 | CA ---
Exercise Stress Test Report Name: Rosanne Hawthorne Exam Date: 12/25/2022 09:14 Exam Location: [facility] Stress Ht (in): 62 Wt (lb): 175 BSA: 1.81 Ordering Phys: Sharad Mixon DO Referring Phys: SHARAD MIXON,, Technologist: MOMO, Age: 72 Gender: F : 1950 Procedure CPT: Indications: R07.9 ICD-10 Codes: Patient History: Chest pain Medications: Meds past 24 hrs: Pretest Chest Pain: STRESS TEST [place] Protocol Exercise Duration (min:sec): 06:[address] Depressions (mm): Angina Score: Clemente Score: Resting HR (bpm): 72 Peak HR (bpm): 136 Resting BP (mmHg): 169 / 84 Peak BP (mmHg): 209 / 79 MPHR: 149 Target HR: 127 % MPHR: 91 METS: 7.1 Total Dose: Peak Dose: Atropine: Double Product: 00873 BP Response: Stress Termination: Reached target heart rate Stress Symptoms: No chest pain or symptoms Stress Summary: ECG ANALYSIS Resting ECG: Stress ECG: CONCLUSIONS Baseline EKG revealed a normal sinus rhythm without significant ST-T changes. Patient walked on a standard Rosalino protocol for 6 minutes and achieved a maximum heart rate of 136 bpm. She developed fatigue and shortness of breath but did not have angina. EKG did not reveal any ST segment changes to indicate ischemia. Resting blood pressure was 169/84 and peak blood pressure was 206/91. This is a negative stress test by EKG criteria with hypertensive response and fair exercise capacity Dr. Kirk Montes MD (Electronically Signed) Final Date: 25 December 2022 17:43
== END | disposition home or self-care (01) ==
LOC: RADECHMAIN 08:15
PROVIDERS: ATTEND Family Medicine
DX: I08.1 Rheumatic disorders of both mitral and tricuspid valves (principal); R07.9 Chest pain, unspecified
CPT/HCPCS: 93017; 93306

== ENCOUNTER → 2023-11-13 | Outpatient (CLI) | payer MEDICARE | END | disposition home or self-care (01) | LOC: LABWHC1 10:47 | PROVIDERS: ATTEND Otolaryngology | DX: J30.89 Other allergic rhinitis (principal) | CPT/HCPCS: 36415; 86001 ==

== ENCOUNTER → 2024-06-23 | Outpatient (CLI) | payer MEDICARE ==
--- NOTE | 2024-06-23 11:59 | US ---
EXAMINATION TYPE: US abdomen comp/pelvis limited DATE OF EXAM: 06/23/2024 COMPARISON: CLINICAL INDICATION: Female, 74 years old with history of N23 UNSPECIFIED RENAL COLIC; Right flank pa in. Hx renal stones. GB removed. EXAM MEASUREMENTS: Liver Length: 15.4 cm CBD: 0.6 cm Spleen: 10.0 cm Right Kidney: 9.7 x 4.2 x 4.3 cm Left Kidney: 10.1 x 4.5 x 4.8 cm Pancreas: Echogenic in appearance, tail not well seen Liver: wnl Gallbladder: Surgically absent CBD: wnl Spleen: wnl Right Kidney: Mild hydronephrosis, unable to identify if stone is present Left Kidney: No hydronephrosis or masses seen Upper IVC: wnl Abd Aorta: No AAA visualized at time of scan Bladder: distended, anechoic Bilateral Jets not seen IMPRESSION: 1. Mild right hydronephrosis. [facility], Workstation: [email or web address], 06/23/2024 11:57 AM
== END | disposition home or self-care (01) ==
LOC: RADUSWWP 07:19
PROVIDERS: ATTEND Family Medicine
DX: N23 Unspecified renal colic (principal); N13.30 Unspecified hydronephrosis
CPT/HCPCS: 76700; 76857